=== PATIENT | female | born 1955 | race Caucasian/White ===

== ENCOUNTER → 2017-01-02 | Outpatient (CLI) | payer OTHER ==
[~2017-01-02] MED LIST: ALEVE220 M1 PO; AVALIDE 300-12.1 TAB; BUSPAR15 MG; BUSPAR15 MG PO; COREG PO; CYMBALTA30 MG PO; DIAZEPAM PO; GABAPENTIN300 M2 PO; GLUCOPHAGE500 MG PO; GLUMETZA1000 MG/BO; LEVOTHROID25 MCG PO; LIPITOR20 MG PO; LIPITOR40 MG; LIPITOR40 MG PO; LOSARTAN-HCTZ1 EAC1 PO; LOSARTAN-HCTZ1 EAC2 PO; NEXIUM20 MG PO; PRILOSEC PO; PRISTIQ100 MG; PRISTIQ100 MG PO; SYNTHROID125; SYNTHROID125 PO; VITAMIN D50000 UNIT; ZOLPIDEM TARTRA10 MG PO; [UNRECOGNIZED DRUG - OTHER] PO
--- NOTE | ~2017-01-02 | US37 ---
[facility] A Service of [facility] & [facility] RADIOLOGY TEXT RESULTS PATIENT: ROSA MARIA AGUIRRE LOCATION: SNIV : 53 UNIT #: [id number] AGE: [address]: Eric Sahni MD SEX: F ORDER DR: [id number] [address] [id number] MR#: [id number] Acc #: [id number] NAME: ROSA MARIA AGUIRRE : 1955 SEX: F STUDY DATE/TIME: 01/02/2017 10:34 UNIT: SNIV ROOM: STUDY DESCRIPTION: US Carotid W/Doppler Bilateral Attending Physician: Eric Sahni M.D. Ordering Physician: Eric Sahni M.D. Primary Care Physician: Eric Sahni M.D. MEDICAL IMAGING REPORT This report is preliminary unless electronic signature is present. EXAM Carotid Doppler bilateral 01/02/2017 HISTORY Left carotid bruit on physical examination 12/26/2016. Syncope, confusion, memory loss, loss of balance and coordination. Blurred vision, hypertension and elevated cholesterol levels. FINDINGS [place]aiza-scale carotid artery images were obtained as well as Doppler waveform, spectral analysis and color flow Doppler imaging. The examination was interpreted according to NASCET criteria. There is no hemodynamically significant stenosis in either internal carotid artery. Peak systolic velocity in the right and left internal carotid arteries is 103 cm/sec and 72 cm/sec respectively. Antegrade blood flow is seen both vertebral arteries. There is elevated peak systolic velocity in the right and left external carotid arteries of 144 cm/sec on the right and 372 cm/sec on the left suggesting degrees of stenosis bilaterally. Mild calcified plaque is seen bilaterally. IMPRESSION 1. No hemodynamically significant stenosis in either internal carotid artery 2. Antegrade blood flow in both vertebral arteries. 3. Elevated peak systolic velocity in both external carotid arteries suggesting degrees of stenosis bilaterally. 1. Dictated by... Enrike Valverde M.D. THIS IS AN ELECTRONICALLY VERIFIED REPORT Enrike Valverde M.D. at 01/04/2017 9:04 AM [facility] A Service of [facility] & [facility] RADIOLOGY TEXT RESULTS PATIENT: ROSA MARIA AGUIRRE LOCATION: IV : 53 UNIT #: [id number] AGE: [address]: Eric Sahni MD SEX: F ORDER DR: Melodie TD: 01/02/2017 17:36 JOB #: [id number] MEDICAL IMAGING REPORT
== END | disposition home or self-care (01) ==
LOC: SNIV 07:42
DX: R09.89 Other specified symptoms and signs involving the circulatory and respiratory systems (principal)
CPT/HCPCS: 93880